=== PATIENT | male | born 1975 | race Caucasian/White ===

== ENCOUNTER 2024-11-29 16:06 | Emergency (ER) | payer SELFPAY ==
[2024-11-29 16:12] VITALS: BP 170/102; PULSE 120; RESP 18; TEMP 37.2; O2SAT 100
--- NOTE | 2024-11-29 17:44 | ED.GENADULT ---
HPI - General Adult General Chief complaint: Unspecified Stated complaint: feeling overwhelmed Time Seen by Provider: 11/29/24 17:10 Source: patient Mode of arrival: EMS Limitations: no limitations History of Present Illness HPI narrative: This is a 49-year-old male that presents to the emergency department for feeling overwhelmed. Reports him and his had an argument. He came to the ER as he wanted somebody to talk to. Had difficulty sleeping last night. Denies any thoughts of harming himself or anyone else. His is concerned as he has seemed paranoid recently Related Data Allergies Allergy/AdvReac Type Severity Reaction Status Date / Time No Known Allergies Allergy Verified 11/29/24 17:47 Review of Systems Review of Systems: All systems reviewed & are unremarkable except as noted in HPI and below PMFSH Social History Social History Substance use type: marijuana Exam Narrative: GENERAL: Disheveled, well-nourished, and in no acute distress. HEAD: Normocephalic, atraumatic. EYES: EOMI. CHEST: No respiratory distress. HEART: Regular rate EXTREMITIES: Normal range of motion. No edema. SKIN: Warm, dry, no rash. NEURO: No focal deficits. Alert and oriented x3. PSYCH: Normal mood and affect Course Course Emergency Course: Patient evaluated by crisis, given resources. Agrees with plan of care Vital Signs Vital signs: Vital Signs Temperature 99 F 11/29/24 16:12 Pulse Rate 120 H 11/29/24 16:12 Respiratory Rate 18 11/29/24 16:12 Blood Pressure 170/102 H 11/29/24 16:12 Pulse Oximetry 100 11/29/24 16:12 Oxygen Delivery Room Air 11/29/24 16:12 Temperature 99 F 11/29/24 16:12 Pulse Rate 81 11/29/24 20:31 Respiratory Rate 20 11/29/24 20:31 Blood Pressure 155/81 H 11/29/24 20:31 Pulse Oximetry 100 11/29/24 20:31 Oxygen Delivery Room Air 11/29/24 16:12 Medical Decision Making MDM Narrative Medical decision making narrative: Patient presents to the emergency department for feeling overwhelmed. Reports he wanted somebody to talk to. Him and his had gotten in an argument today. Had difficulty sleeping last night. Tachycardic and hypertensive upon arrival, this down trended with IV fluid hydration. Patient is afebrile and nontoxic appearing. CBC with leukocytosis to 16.3. He does not have any localizing infectious symptoms. Metabolic panel without concerning findings. Urine with some evidence of dehydration, patient hydrated with a L of IV fluids. Drug screen positive for amphetamines, cannabinoids. Alcohol level is negative. Patient evaluated by crisis, given resources. Agrees with plan of care Vital Signs Vital Signs: Vital Signs Temperature 99 F 11/29/24 16:12 Pulse Rate 120 H 11/29/24 16:12 Respiratory Rate 18 11/29/24 16:12 Blood Pressure 170/102 H 11/29/24 16:12 Pulse Oximetry 100 11/29/24 16:12 Oxygen Delivery Room Air 11/29/24 16:12 Temperature 99 F 11/29/24 16:12 Pulse Rate 81 11/29/24 20:31 Respiratory Rate 20 11/29/24 20:31 Blood Pressure 155/81 H 11/29/24 20:31 Pulse Oximetry 100 11/29/24 20:31 Oxygen Delivery Room Air 11/29/24 16:12 Lab Data Lab results reviewed: Yes I reviewed the patient's lab results. 11/29/24 17:46 11/29/24 17:46 Labs: Lab Results 11/29/24 Range/Units 17:46 WBC 16.3 H (4.5-10.0) K/mm3 RBC 5.03 (4.6-6.20) M/mm3 Hgb 14.4 (14.0-18.0) g/dL Hct 43.5 (42.0-52.0) % MCV 86.5 (80-100) fl MCH 28.6 (26-34) pg MCHC 33.1 (32-36) g/dl RDW 13.0 (11.5-14.5) % Plt Count 281 (150-375) k/mm3 MPV 10.7 H (7.4-10.4) fl Immature Gran % (Auto) 0.4 (0-0.5) % Neut % (Auto) 75.2 H (45.5-73.1) % Lymph % (Auto) 17.5 L (18.3-44.2) % [place] % (Auto) 6.1 (2.6-8.5) % Eos % (Auto) 0.2 (0-4.4) % Baso % (Auto) 0.6 (0.2-1.2) % Lymph # (Auto) 2.84 (0.9-3.2) K/mm3 [place] # (Auto) 1.0 H (0.1-0.6) K/mm3 Eos # (Auto) 0.0 (0-0.3) K/mm3 Baso # (Auto) 0.1 (0.0-0.1) K/mm3 Abs Immat Gran (auto) 0.06 H (0.00-0.031) K/mm3 Absolute Neuts (auto) 12.2 H (1.3-6.7) K/mm3 Absolute Nucleated RBC 0.000 (0.0-0.012) K/mm3 Nucleated RBC % 0.0 (0.0-0.2) % Sodium 139 (137-145) mmol/L Potassium 3.9 (3.4-5.0) mmol/L Chloride 105 (98-107) mmol/L Carbon Dioxide 22 (22-30) mmol/L Anion Gap 12 (4-12) mmol/L BUN 11 (9-20) mg/dL Creatinine 1.06 (0.7-1.3) mg/dL Estim Creat Clear Calc 83 ml/min Estimated GFR > 60 (59 - ) Glucose 110 (65-110) mg/dL Calcium 9.5 (8.4-10.2) mg/dL Total Bilirubin 1.2 (0.2-1.3) mg/dL AST 27 (17-59) U/L ALT 16 (6-50) U/L Alkaline Phosphatase 87 (38-126) U/L Total Creatine Kinase 94 (55-170) U/L Total Protein 9.1 H (6.3-8.2) g/dL Albumin 5.1 (3.5-5.1) g/dL TSH (Reflex) 1.670 (0.465-4.68) uIU/mL Urine Color Dark yellow (Yellow) Urine Appearance Clear (Clear) Urine pH 7.5 (5.0-9.0) Ur Specific [place] 1.023 (1.001-1.035) Urine Protein 1+ H (Negative) mg/dL Urine Glucose (UA) Negative (Negative) mg/dL Urine Ketones 2+ H (Negative) mg/dL Ur Blood (Man) Negative (Negative) Urine Nitrate Negative (Negative) Urine Bilirubin Negative (Negative) Urine Urobilinogen 1.0 (<2.0) mg/dL Add Ur Microanalysis Reviewed Leukocyte Esterase Rfl Negative (Negative) CÉSAR/UL Urine RBC 6-10 H (0-2) /hpf Urine WBC 0-5 (0-3) /hpf Ur Squamous Epith Cells None seen (Few) /hpf Calcium Oxalate Crystal Present (None) /hpf Urine Bacteria None seen /hpf Urine Casts 3-5 Hyaline Casts Present (None) /lpf Urine Mucus Present /lpf Urine Opiates Screen Negative (Negative) Urine Methadone Screen Negative (Negative) Ur Barbiturates Screen Negative (Negative) Ur Phencyclidine Scrn Negative (Negative) Ur Amphetamine Screen Positive A (Negative) U Benzodiazepines Scrn Negative (Negative) Urine Cocaine Screen Negative (Negative) U Cannabinoids Screen Positive A (Negative) Ethyl Alcohol < 10 (<10) mg/dL Influenza A (RT-PCR) Negative (Negative) Influenza B (RT-PCR) Negative (Negative) SARS-CoV-2 RNA (RT-PCR) Negative (Negative) Critical Care Time Critical Care Time Critical Care Time: No Discharge Plan Discharge Clinical Impression: Stress reaction Patient Disposition: Home Condition: Improved Instructions: Stress (ED), Help Prevent Suicide (ED) Additional Instructions: Return to the emergency department if you experience fever, chest pain, shortness of breath, abdominal pain with nausea and vomiting, you have thoughts of harming yourself or anyone else, or any other symptoms that are concerning to you. Follow up with resources provided by crisis Patient Language: Lithuanian Follow-up/Referrals: PHYSICIAN,MOISTURE MACHINE TENDER [Primary Care Provider, Internal Medicine] Chaz Vega MD [Physician, Family Practice]
[2024-11-29 17:55] LABS: Hematocrit 43.5 % (42.0-52.0); Hemoglobin 14.4 g/dL (14.0-18.0); Immature Granulocyte Percent A 0.4 % (0-0.5); Lymphocytes Absolute Auto 2.84 K/mm3 (0.9-3.2); Mean Corpuscular HGB Conc 33.1 g/dl (32-36); Mean Corpuscular Hemoglobin 28.6 pg (26-34); Mean Corpuscular Volume 86.5 fl (80-100); Nucleated Red Blood Cells Absolute Auto 0.000 K/mm3 (0.0-0.012); Nucleated Red Blood Cells Perc 0.0 % (0.0-0.2); Platelet Count Result 281 k/mm3 (150-375); Red Blood Count 5.03 M/mm3 (4.6-6.20); White Blood Count 16.3 K/mm3 (4.5-10.0)
[2024-11-29] MEDS: ONDANSETRON HCL ODT 4 MG TABLET PO (17:55)
[2024-11-29 18:09] LABS: Alanine Aminotransferase 16 U/L (6-50); Albumin Level 5.1 g/dL (3.5-5.1); Alkaline Phosphatase 87 U/L (38-126); Anion Gap 12 mmol/L (4-12); Aspartate Amino Transferase 27 U/L (17-59); Bilirubin,Total 1.2 mg/dL (0.2-1.3); Blood Urea Nitrogen 11 mg/dL (9-20); Calcium 9.5 mg/dL (8.4-10.2); Carbon Dioxide 22 mmol/L (22-30); Chloride 105 mmol/L (98-107); Estimated CRCL calculation 83 ml/min; Estimated Glomerular Filt Rate > 60; Glucose 110 mg/dL (65-110); Potassium 3.9 mmol/L (3.4-5.0); Sodium 139 mmol/L (137-145); Total Protein 9.1 g/dL (6.3-8.2)
[2024-11-29 18:21] LABS: Cannabinoid Screen Urine Positive (Negative)
[2024-11-29 18:52] LABS: Influenza A QL RT-PCR Negative (Negative); Influenza B QL RT-PCR Negative (Negative); SARS-CoV-2 RNA PCR Negative (Negative)
[2024-11-29 19:01] LABS: Thyroid Stimulating Hormone Reflex 1.670 uIU/mL (0.465-4.68)
[2024-11-29 19:10] LABS: Add Urine Microscopic? YES; Appearance Urine Clear (Clear); Glucose Urine UA Negative (Negative); Leukocyte Esterase Ur Negative LEU/UL (Negative); Need Manual Microscopic Reviewed; Nitrate Urine Negative (Negative); Specific Grav Ur 1.023 (1.001-1.035)
[2024-11-29 19:17] LABS: Creatine Kinase 94 U/L (55-170)
[2024-11-29] MEDS: SODIUM CHLORIDE 0.9% IV 1,000 ML 999 ML IV CONT (19:29)
[2024-11-29 20:31] VITALS: BP 155/81; PULSE 81; RESP 20; O2SAT 100
--- NOTE | 2024-11-29 20:51 | PC.NURSE ---
This RN asked pt about hallucinations. Pt reports he hears ringing in his ears. Negative energy around him when he is sleeping. Pt states he feels like he is going in and out of time. Lastly, pt states about a month ago he was in the or[place]iz and felt like he kept seeing eyes. Pt states he does not have any SI or HI. EP notified.
--- NOTE | 2024-11-29 22:07 | PC.NURSE ---
This RN spoke to pt per pt request.CRISIS will call when available for better instructions per request.
== END 2024-11-29 22:57 | disposition home or self-care (01) ==
PROVIDERS: Emergency Provider Physician Assistant
DX: F43.9 Reaction to severe stress, unspecified (principal); I10 Essential (primary) hypertension; R00.0 Tachycardia, unspecified; D72.829 Elevated white blood cell count, unspecified; Z20.822 Contact with and (suspected) exposure to COVID-19
CPT/HCPCS: 36415; 80053; 80307; 81001; 82077; 82550; 84443; 85025; 87636; 96360; 99284; A9270; J7030

== ENCOUNTER 2024-12-11 21:22 | Observation (INO) | payer SELFPAY ==
--- NOTE | ~2024-12-11 | CT_ITS ---
EXAMINATION: CT BRAIN W/O DATE: 12/11/2024 21:50 INDICATION: Syncope TECHNIQUE: Computed tomography (CT) of the head was performed without intravenous contrast. The dose-length product was 605.33 mGy-cm. COMPARISON: No prior studies for comparison. FINDINGS: Normal brain parenchymal volume for age. Normal corona-white differentiation. No acute intracranial hemorrhage, infarction, mass or mass effect. No ventriculomegaly or midline shift. Midline sagittal images demonstrate a normal corpus callosum, craniovertebral junction and sella turcica. Basilar cisterns are patent. Paranasal sinuses and mastoids are pneumatized. No depressed skull fractures. IMPRESSION: 1. No acute intracranial abnormality. Reviewed, dictated and finalized at location O.
--- NOTE | ~2024-12-11 | XR_ITS ---
EXAMINATION: XR chest 1V portable 12/11/2024 21:54 INDICATION: Syncope PROCEDURE: AP portable chest COMPARISON: No prior studies for comparison. FINDINGS: The lungs are clear. The cardiomediastinal silhouette is within normal limits. There are no pleural effusions. There is no pneumothorax suspected. IMPRESSION: 1: NO ACUTE CARDIOPULMONARY DISEASE. Reviewed, dictated and finalized at location O.
[2024-12-11 21:24] VITALS: BP 109/94; PULSE 97; RESP 18; TEMP 36.4; O2SAT 100
--- NOTE | 2024-12-11 21:28 | ECG_ITS ---
Test Date: 2024-12-11 21:31:54 Measurements Intervals [place] Rate: 86 P: 61 NM: 142 QRS: 50 QRSD: 94 T: 20 QT: 374 QTc: 449 Interpretive Statements SINUS RHYTHM POSSIBLE LEFT ATRIAL ENLARGEMENT [-0.1mV P-WAVE IN V1/V2] NONSPECIFIC T-WAVE ABNORMALITY No previous ECG available for comparison Electronically Signed On 12-12-2024 06:38:25 CDT by Warren Howard M.D.
--- NOTE | 2024-12-11 21:43 | ED_ITS ---
HPI - Syncope General Chief Complaint: Seizure Stated Complaint: NEW ONSET SZ ACTIVITY Time Seen by Provider: 12/11/24 21:31 History of Present Illness HPI narrative: 49-year-old male with history of psychiatric illness presenting to the emergency department after seizure versus syncopal event that was witnessed by family member was present at bedside. Patient recently was admitted to a [facility] where he was titrated on any medications for his psychosis. Discharged home on Zyprexa and trazodone which he took his 1st dose of today but has been taking them during the hospital stay but was not able to get them filled until today. He presents today as his noticed that he had a syncopal event where he was walking to the bathroom and then all the sudden fell face 1st and landed on the ground with some seizure-like activity where he was shaking his extremities and lost consciousness very briefly. This lasted about 30 seconds and he regained consciousness was acting appropriately. He was diaphoretic and sweating at this time though. EMS was called as this almost happened again. EMS noted that in the ambulance rig patient became bradycardic and hypotensive with pulses in the 40s and blood pressure in the 60s systolic and he was very diaphoretic. They administered 1 mg of atropine with improvement in vital signs. Patient not have any further seizure or shaking activity and brought to the hospital and placed into the emergency department room 5 for evaluation. Patient denies any chest pain, shortness a breath, nausea, vomiting or headache at this time. He states he just feels very tired. He is acting appropriately moving all extremities. Does not appear postictal but does complain of feeling tired. No evidence of traumatic injury. EKG reviewed from EMS shows sinus bradycardia. EKG obtained here shows normal QTC interval, no ST segment changes or ectopy. Placed on cardiac catheterization technologist and workup underway. Related Data Home Medications ?Medication ?Instructions ?Recorded ?Confirmed ?Last Taken ?Type olanzapine 20 mg tablet 20 mg PO HS 12/11/24 5 12/11/24 History trazodone 50 mg tablet 50 mg PO HS PRN insomnia 12/11/24 12/11/24 History Allergies Allergy/AdvReac Type Severity Reaction Status Date / Time No Known Allergies Allergy Verified 12/11/24 21:33 Review of Systems 2 Review of Systems: As reviewed above in HPI PMFSH Past Medical History Medical History (Updated 12/12/24 @ 06:29 by Yong Romero MD) Bipolar disorder Surgical History Surgical History (Updated 12/12/24 @ 04:25 by Sara Durand DO) No history of previous surgery Family History Family History Mother Hypertension Father Lung cancer Social History Social History (Updated 12/12/24 @ 04:27 by Sara Durand DO) Social History: Patient lives with his of 13 years. 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 He smokes 7 cigarettes a day on and off for about 25 years.. He uses marijuana gummies daily. He denies any alcohol use. Code status: Full code Surrogate decision maker: Smoking packs per day: 0.25 Smoking cigarettes per day: 5.0 Years smoked: 25 Smoking pack-years: 6.25 Smoking status: Current every day smoker Tobacco type: cigarettes Alcohol intake: never Substance use: current Substance use type: marijuana Other substance usage details: daily Lack of Transportation: No Lack of Food: Never True Current Housing: I Have Housing Concerned About Future Housing: No Difficulty Paying Gas/Electric Bills: No Difficulty Paying for Meds: No Currently Unemployed: No Education: High School Diploma/GED Difficulty w/ Childcare or Family Care: No Spiritual care concerns: No Exam 2 Narrative: GENERAL: [Well-appearing, well-nourished, and in no acute distress.] HEAD: Slightly diaphoretic on the forehead but otherwise normocephalic and atraumatic EYES: [PERRLA and EOMI.] ENT: Nares clear, no rhinorrhea or epistaxis. Mucous membranes moist. NECK: Supple. CHEST: [Clear to auscultation. No respiratory distress.] HEART: [Regular rate and rhythm]. No murmur heard. [Normal peripheral pulses.] ABDOMEN: [Soft, nondistended], [nontender], [No rigidity or guarding] EXTREMITIES: Normal range of motion. [No edema.] SKIN: Warm, dry, no rash. NEURO: [No focal deficits]. Alert and oriented [x3.] PSYCH: [Normal mood and affect.] Course Vital Signs Vital signs: Vital Signs Temperature 36.4 C 12/11/24 21:24 Pulse Rate 97 09/24/25 21:24 Respiratory Rate 18 12/11/24 21:24 Blood Pressure 109/94 H 12/11/24 21:24 Pulse Oximetry 100 12/11/24 21:24 Oxygen Delivery Room Air 12/11/24 21:24 Temperature 36.6 C 12/12/24 06:00 Pulse Rate 50 L 12/12/24 06:00 Respiratory Rate 16 12/12/24 06:00 Blood Pressure 104/57 L 12/12/24 06:00 Pulse Oximetry 100 12/12/24 06:00 Oxygen Delivery Room Air 12/12/24 03:28 MDM - Syncope MDM Narrative Medical decision making narrative: 49-year-old male with history of psychiatric illness presenting to the emergency department after seizure versus syncopal event that was witnessed by family member was present at bedside. Patient recently was admitted to a [facility] hospital where he was titrated on any medications for his psychosis. Discharged home on Zyprexa and trazodone which he took his 1st dose of today but has been taking them during the hospital stay but was not able to get them filled until today. He presents today as his noticed that he had a syncopal event where he was walking to the bathroom and then all the sudden fell face 1st and landed on the ground with some seizure-like activity where he was shaking his extremities and lost consciousness very briefly. This lasted about 30 seconds and he regained consciousness was acting appropriately. He was diaphoretic and sweating at this time though. EMS was called as this almost happened again. EMS noted that in the ambulance rig patient became bradycardic and hypotensive with pulses in the 40s and blood pressure in the 60s systolic and he was very diaphoretic. They administered 1 mg of atropine with improvement in vital signs. Patient not have any further seizure or shaking activity and brought to the hospital and placed into the emergency department room 5 for evaluation. Patient denies any chest pain, shortness a breath, nausea, vomiting or headache at this time. He states he just feels very tired. He is acting appropriately moving all extremities. Does not appear postictal but does complain of feeling tired. No evidence of traumatic injury. EKG reviewed from EMS shows sinus bradycardia. EKG obtained here shows normal QTC interval, no ST segment changes or ectopy. Placed on cardiac catheterization technologist and workup underway. Patient's family at bedside is providing collateral formation as well. He has normal vital signs on the monitor without any tachycardia, fever, hypoxemia or blood pressure concerns at this time. He is slightly diaphoretic. Historical elements of physical exam is concerning for potential seizure activity although he did not have any postictal phase and was short-lived return of mentation so potential for other causes such as electrolyte imbalances, dysrhythmia, cardiac related syncope and less likely thromboembolic related syncope from a PE. He did have recent hospitalization for psychiatric illness and started on new psychotropic medications which can affect cardiac activity especially the trazodone that he was prescribed being an alpha-dana and serotonin modulators and the Zyprexa potentially be causing interval prolongation. EKG is reassuring initially without any evidence of this. Laboratory studies obtained, cardiac workup underway. CT of the head ordered. Dimer ordered. Urine drug screen. Patient will be re-evaluated frequently and on telemetry at this time. Urinalysis unremarkable for infection Patient's workup was largely unremarkable. No acute findings on laboratory studies or CT scan. No significant leukocytosis but he does have some anemia at 11 but stable on repeat labs. Normal platelet count. Electrolyte panel unremarkable. Normal kidney function. Normal glucose and LFTs. Negative lactic acid. Negative dimer. Negative troponin x2. Urinalysis without infection. EKG shows normal QTC interval, normal rate, no ectopy. No ST segment changes. Given patient's unclear cause of syncope with concerning historical elements and new medications that do have some alpha blockade including trazodone and Zyprexa he will be admitted for observation and workup. Spoke to the hospitalist Dr. Durand who accepted the patient to a telemetry monitored bed for observation. Family and patient comfortable with plan and stay for admission. Medical Records Attestation: I reviewed the patient's medical records. Lab Data Attestation: I reviewed the patient's lab results. 12/12/24 05:25 12/12/24 05:25 Labs: Lab Results 12/11/24 12/11/24 12/11/24 Range/Units 21:27 22:12 22:18 WBC 10.6 H (4.5-10.0) K/mm3 RBC 3.76 L (4.6-6.20) M/mm3 Hgb 11.0 L D (14.0-18.0) g/dL Hct 33.4 L (42.0-52.0) % MCV 88.8 (80-100) fl MCH 29.3 (26-34) pg MCHC 32.9 (32-36) g/dl RDW 12.9 (11.5-14.5) % Plt Count 171 (150-375) k/mm3 MPV 11.4 H (7.4-10.4) fl Immature Gran % (Auto) 0.4 (0-0.5) % Neut % (Auto) 55.8 (45.5-73.1) % Lymph % (Auto) 33.4 (18.3-44.2) % [place] % (Auto) 8.3 (2.6-8.5) % Eos % (Auto) 1.5 (0-4.4) % Baso % (Auto) 0.6 (0.2-1.2) % Lymph # (Auto) 3.54 H (0.9-3.2) K/mm3 [place] # (Auto) 0.9 H (0.1-0.6) K/mm3 Eos # (Auto) 0.2 (0-0.3) K/mm3 Baso # (Auto) 0.1 (0.0-0.1) K/mm3 Abs Immat Gran (auto) 0.04 H (0.00-0.031) K/mm3 Absolute Neuts (auto) 5.9 (1.3-6.7) K/mm3 Absolute Nucleated RBC 0.000 (0.0-0.012) K/mm3 Nucleated RBC % 0.0 (0.0-0.2) % PT 13.6 (11.1-14.7) Seconds INR 1.0 APTT 25.6 (22.3-36.8) Seconds D-Dimer 0.46 (<0.48) ug/mL Sodium 138 (137-145) mmol/L Potassium 3.7 (3.4-5.0) mmol/L Chloride 106 (98-107) mmol/L Carbon Dioxide 29 (22-30) mmol/L Anion Gap 3 L (4-12) mmol/L BUN 13 (9-20) mg/dL Creatinine 0.92 (0.7-1.3) mg/dL Estim Creat Clear Calc 108 ml/min Estimated GFR > 60 (59 - ) Glucose 123 H (65-110) mg/dL POC Capillary Glucose 130 H (65-105) mg/dl Lactic Acid 1.1 (0.7-2.0) mmol/L Calcium 8.9 (8.4-10.2) mg/dL Total Bilirubin < 0.1 L (0.2-1.3) mg/dL AST 21 (17-59) U/L ALT 15 (6-50) U/L Alkaline Phosphatase 63 (38-126) U/L Troponin I < 0.012 (0.000-0.034) ng/mL Total Protein 5.9 L (6.3-8.2) g/dL Albumin 3.4 L (3.5-5.1) g/dL Lipase 104 (23-300) U/L Urine Color (Yellow) Urine Appearance (Clear) Urine pH (5.0-9.0) Ur Specific [place] (1.001-1.035) Urine Protein (Negative) mg/dL Urine Glucose (UA) (Negative) mg/dL Urine Ketones (Negative) mg/dL Ur Blood (Man) (Negative) Urine Nitrate (Negative) Urine Bilirubin (Negative) Urine Urobilinogen (<2.0) mg/dL Leukocyte Esterase Rfl (Negative) CÉSAR/UL Urine RBC (0-2) /hpf Urine WBC (0-3) /hpf Ur Squamous Epith Cells (Few) /hpf Urine Bacteria /hpf Urine Casts Urine Opiates Screen (Negative) Urine Methadone Screen (Negative) Ur Barbiturates Screen (Negative) Ur Phencyclidine Scrn (Negative) Ur Amphetamine Screen (Negative) U Benzodiazepines Scrn (Negative) Urine Cocaine Screen (Negative) U Cannabinoids Screen (Negative) Influenza A (RT-PCR) Negative (Negative) Influenza B (RT-PCR) Negative (Negative) RSV (RT-PCR) Negative (Negative) SARS-CoV-2 RNA (RT-PCR) Negative (Negative) 12/11/24 12/12/24 Range/Units 22:50 00:32 WBC (4.5-10.0) K/mm3 RBC (4.6-6.20) M/mm3 Hgb (14.0-18.0) g/dL Hct (42.0-52.0) % MCV (80-100) fl MCH (26-34) pg MCHC (32-36) g/dl RDW (11.5-14.5) % Plt Count (150-375) k/mm3 MPV (7.4-10.4) fl Immature Gran % (Auto) (0-0.5) % Neut % (Auto) (45.5-73.1) % Lymph % (Auto) (18.3-44.2) % [place] % (Auto) (2.6-8.5) % Eos % (Auto) (0-4.4) % Baso % (Auto) (0.2-1.2) % Lymph # (Auto) (0.9-3.2) K/mm3 [place] # (Auto) (0.1-0.6) K/mm3 Eos # (Auto) (0-0.3) K/mm3 Baso # (Auto) (0.0-0.1) K/mm3 Abs Immat Gran (auto) (0.00-0.031) K/mm3 Absolute Neuts (auto) (1.3-6.7) K/mm3 Absolute Nucleated RBC (0.0-0.012) K/mm3 Nucleated RBC % (0.0-0.2) % PT (11.1-14.7) Seconds INR APTT (22.3-36.8) Seconds D-Dimer (<0.48) ug/mL Sodium (137-145) mmol/L Potassium (3.4-5.0) mmol/L Chloride (98-107) mmol/L Carbon Dioxide (22-30) mmol/L Anion Gap (4-12) mmol/L BUN (9-20) mg/dL Creatinine (0.7-1.3) mg/dL Estim Creat Clear Calc ml/min Estimated GFR (59 - ) Glucose (65-110) mg/dL POC Capillary Glucose (65-105) mg/dl Lactic Acid (0.7-2.0) mmol/L Calcium (8.4-10.2) mg/dL Total Bilirubin (0.2-1.3) mg/dL AST (17-59) U/L ALT (6-50) U/L Alkaline Phosphatase (38-126) U/L Troponin I < 0.012 (0.000-0.034) ng/mL Total Protein (6.3-8.2) g/dL Albumin (3.5-5.1) g/dL Lipase (23-300) U/L Urine Color Yellow (Yellow) Urine Appearance Turbid H (Clear) Urine pH 7.0 (5.0-9.0) Ur Specific [place] 1.018 (1.001-1.035) Urine Protein 1+ H (Negative) mg/dL Urine Glucose (UA) Negative (Negative) mg/dL Urine Ketones Trace H (Negative) mg/dL Ur Blood (Man) Negative (Negative) Urine Nitrate Negative (Negative) Urine Bilirubin Negative (Negative) Urine Urobilinogen 1.0 (<2.0) mg/dL Leukocyte Esterase Rfl Negative (Negative) CÉSAR/UL Urine RBC 0-2 (0-2) /hpf Urine WBC 0-5 (0-3) /hpf Ur Squamous Epith Cells None seen (Few) /hpf Urine Bacteria None seen /hpf Urine Casts 3-5 Urine Opiates Screen Negative (Negative) Urine Methadone Screen Negative (Negative) Ur Barbiturates Screen Negative (Negative) Ur Phencyclidine Scrn Negative (Negative) Ur Amphetamine Screen Negative (Negative) U Benzodiazepines Scrn Negative (Negative) Urine Cocaine Screen Negative (Negative) U Cannabinoids Screen Positive A (Negative) Influenza A (RT-PCR) (Negative) Influenza B (RT-PCR) (Negative) RSV (RT-PCR) (Negative) SARS-CoV-2 RNA (RT-PCR) (Negative) Imaging Data Attestation: I personally reviewed and interpreted this imaging study as follows: My impression: Impressions Head CT 12/11/24 21:51 IMPRESSION: 1. No acute intracranial abnormality. Chest X-Ray 12/11/24 22:00 IMPRESSION: 1: NO ACUTE CARDIOPULMONARY DISEASE. Discharge Plan Discharge Clinical Impression: Syncope and collapse Patient Disposition: Still a Patient Condition: Stable
[2024-12-11] MEDS: SODIUM CHLORIDE 0.9% IV 1,000 ML 999 ML IV CONT (22:08)
[2024-12-11 22:25] LABS: Hematocrit 33.4 % (42.0-52.0); Hemoglobin 11.0 g/dL (14.0-18.0); Immature Granulocyte Percent A 0.4 % (0-0.5); Lymphocytes Absolute Auto 3.54 K/mm3 (0.9-3.2); Mean Corpuscular HGB Conc 32.9 g/dl (32-36); Mean Corpuscular Hemoglobin 29.3 pg (26-34); Mean Corpuscular Volume 88.8 fl (80-100); Nucleated Red Blood Cells Absolute Auto 0.000 K/mm3 (0.0-0.012); Nucleated Red Blood Cells Perc 0.0 % (0.0-0.2); Platelet Count Result 171 k/mm3 (150-375); Red Blood Count 3.76 M/mm3 (4.6-6.20); White Blood Count 10.6 K/mm3 (4.5-10.0)
[2024-12-11 22:36] LABS: Alanine Aminotransferase 15 U/L (6-50); Albumin Level 3.4 g/dL (3.5-5.1); Alkaline Phosphatase 63 U/L (38-126); Anion Gap 3 mmol/L (4-12); Aspartate Amino Transferase 21 U/L (17-59); Bilirubin,Total < 0.1 mg/dL (0.2-1.3); Blood Urea Nitrogen 13 mg/dL (9-20); Calcium 8.9 mg/dL (8.4-10.2); Carbon Dioxide 29 mmol/L (22-30); Chloride 106 mmol/L (98-107); Estimated CRCL calculation 108 ml/min; Estimated Glomerular Filt Rate > 60; Glucose 123 mg/dL (65-110); Lipase 104 U/L (23-300); Potassium 3.7 mmol/L (3.4-5.0); Sodium 138 mmol/L (137-145); Total Protein 5.9 g/dL (6.3-8.2)
[2024-12-11 22:48] LABS: Troponin I < 0.012 ng/mL (0.000-0.034)
[2024-12-11 22:49] LABS: INR 1.0; Prothrombin Time 13.6 Seconds (11.1-14.7)
[2024-12-11 22:50] LABS: Partial Thromboplastin Time 25.6 Seconds (22.3-36.8)
[2024-12-11 22:53] LABS: Influenza A QL RT-PCR Negative (Negative); Influenza B QL RT-PCR Negative (Negative); RSV RNA, RT-PCR Negative (Negative); SARS-CoV-2 RNA PCR Negative (Negative)
[2024-12-11 23:01] LABS: Add Urine Microscopic? YES; Appearance Urine Turbid (Clear); Glucose Urine UA Negative (Negative); Leukocyte Esterase Ur Negative LEU/UL (Negative); Nitrate Urine Negative (Negative); Specific Grav Ur 1.018 (1.001-1.035)
[2024-12-11 23:15] LABS: Cannabinoid Screen Urine Positive (Negative)
[2024-12-12] VITALS (15 sets, daily range): BP systolic 104–139; BP diastolic 57–91; PULSE 50–90; RESP 16–20; TEMP 36.4–36.7; O2SAT 98–100; BMI 30.4
--- NOTE | 2024-12-12 | ECHO_ITS ---
Patient Info Name: Dennis Escalante Age: 49 years : 1975 Gender: Male Ht: 71 in Wt: 218 lbs BSA: 2.25 m2 HR: 66 bpm BP: 104 / 57 mmHg Technical Quality: Good Exam Date: 12/12/2024 3:18 PM Patient Status: O Admit Date: 12/12/2024 Exam Type: CA echo doppler color flow Complete two-dimensional, color flow and Doppler transthoracic echocardiogram is performed. Staff Referring Physician: Yong Romero Belt Maker Helper: Pauline Stein Attending Provider: Sara Durand DO Summary 1. Complete two-dimensional, color flow and Doppler transthoracic echocardiogram is performed. 2. Left ventricular systolic function is normal, estimated at 60-65. 3. The left ventricular diastolic function is normal. 4. There is trace tricuspid valve regurgitation. 5. Moderate pulmonary hypertension, estimated pulmonary arterial systolic pressure is 55 mmHg. 6. The aortic root size at the sinus of Valsalva is mildly dilated. Left Ventricle Left ventricular chamber dimension is normal. Left ventricular systolic function is normal, estimated at 60-65. There is no increased left ventricular wall thickness. Left ventricular septal wall motion is normal. The left ventricular diastolic function is normal. Right Ventricle Right ventricular chamber dimension is normal. Right ventricular systolic function is normal. Left Atria Left atrial chamber dimension is normal. Right Atria Right atrial chamber dimension is normal. Aortic Valve The aortic valve is trileaflet. There is no aortic valve sclerosis. There is no aortic valve stenosis. There is no aortic valve regurgitation. Pulmonic Valve The pulmonic valve is normal. There is no pulmonic valve stenosis. There is no pulmonic regurgitation. Mitral Valve The mitral valve has normal leaflets. There is no mitral valve stenosis. There is no mitral valve regurgitation. Tricuspid Valve The tricuspid valve leaflets are normal. There is no significant tricuspid valve stenosis. There is trace tricuspid valve regurgitation. Moderate pulmonary hypertension, estimated pulmonary arterial systolic pressure is 55 mmHg. Pericardium/Pleural The pericardium appears normal. There is no pericardial effusion. Inferior Vena Cava Normal inferior vena cava with >50% collapse upon inspiration consistent with normal right atrial pressure, 5 mmHg. Aorta The aortic root size at the sinus of Valsalva is mildly dilated. The prox ascending aorta size is normal. Left Ventricular Outflow Tract Name Value Normal LVOT 2D LVOT Diameter 2.0 cm LVOT Doppler LVOT Peak Velocity 142 cm/s LVOT Peak Gradient 8 mmHg LVOT Mean Gradient 4 mmHg LVOT VTI 27 cm LVOT Stroke Volume 84 ml LVOT CO 4.9 l/min LVOT CI 2.2 l/min/m2 Pulmonic Valve Name Value Normal RVOT Doppler RVOT Peak Velocity 74 cm/s RVOT Peak Gradient 2 mmHg PV Doppler PV Peak Velocity 115 cm/s PV Peak Gradient 5 mmHg Mitral Valve Name Value Normal MV Diastolic Function MV E Peak Velocity 102 cm/s MV A Peak Velocity 55 cm/s MV E/A 1.9 MV Decel Time (PW) 243 ms MV Annular TDI MV E/e' (Septal) 9.0 MV E/e' (Lateral) 5.2 MV E/e' (Average) 7.1 Tricuspid Valve Name Value Normal TV Regurgitation Doppler TR Peak Velocity 354 cm/s TR Peak Gradient 40 mmHg Estimated PAP/RSVP RA Pressure 5 mmHg <=5 PA Systolic Pressure 55 mmHg <36 RV Systolic Pressure 55 mmHg <36 Aortic Valve Name Value Normal AV Doppler AV Peak Velocity 167 cm/s AV Peak Gradient 11 mmHg AV Area (Cont Eq Wilber) 2.7 cm2 AV DI (Wilber) 0.85 AV Regurgitation 2D LVOT Area 3.1 cm2 Ventricles Name Value Normal LV Dimensions 2D/MM IVS Diastolic Thickness (2D) 0.9 cm 0.6-1.0 LVID Diastole (2D) 4.8 cm 4.2-5.8 LVIW Diastolic Thickness (2D) 1.0 cm 0.6-1.0 LVID Systole (2D) 3.2 cm 2.5-4.0 LVOT Diameter 2.0 cm LV Mass (2D Cubed) 162.87 g 88.00-224.00 LV Mass Index (2D Cubed) 72 g/m2 49-115 Relative Wall Thickness (2D) 0.43 <=0.42 LV Fractional Shortening/Ejection Fraction 2D/MM LV Fractional Shortening (2D) 32 % 25-43 LV EF (2D Teichholz) 60 % LV Diastolic Volume (4C MOD) 106 ml LV EF (4C MOD) 63 % LV Diastolic Volume (2C MOD) 120 ml LV EF (2C MOD) 71 % LV Diastolic Volume (BP MOD) 114 ml 62-150 LV Diastolic Volume Index (BP MOD) 51 ml/m2 34-74 LV Systolic Volume (BP MOD) 38 ml 21-61 LV Systolic Volume Index (BP MOD) 17 ml/m2 11-31 LV EF (BP MOD) 66 % 52-72 LV Diastolic Length (4C) 8.6 cm LV Systolic Length (4C) 7.3 cm LV Stroke Volume (4C MOD) 67 ml Atria Name Value Normal LA Dimensions LA Volume (4C A-L) 63 ml LA Volume (BP A-L) 75 ml RA Dimensions RA Systolic Major [place] Length (4C) 5.9 cm 2.1-2.7 RA Area (4C) 20.5 cm2 <=18.0 Report Signatures
--- NOTE | 2024-12-12 00:38 | ECG_ITS ---
Test Date: 2024-12-12 00:24:49 Measurements Intervals [place] Rate: 64 P: 62 CO: 131 QRS: 61 QRSD: 92 T: 42 QT: 436 QTc: 452 Interpretive Statements SINUS RHYTHM WITH SINUS ARRHYTHMIA Electronically Signed On 12-12-2024 06:37:45 CDT by Warren Howard M.D.
[2024-12-12 01:09] LABS: Troponin I < 0.012 ng/mL (0.000-0.034)
--- NOTE | 2024-12-12 01:21 | PM.IMHP ---
H&P: HPI History of Present Illness Date/Time: 12/12/24 01:21 Chief Complaint: Seizure-like activity Narrative: 49-year-old male with a past medical history of psychiatric illness with psychosis to was recently started on Zyprexa and trazodone who presented to the ER via EMS due to loss of consciousness with seizure-like activity. The patient reports that he was discharged [place] on 12/09/2024 after a 7 day stay. The went to get his medications filled but they were not ready. Did not picker his medications until the . He took is Zyprexa in the afternoon when they picked up his meds and then took is trazodone at bedtime. He stated that he got up to go to the bathroom to have a bowel movement and about skilled nursing to the bathroom started to feel lightheaded and sweaty. He passed out and does not remember falling he does report some discomfort in his shoulders. His reported that the patient fell face 1st in landed on the ground. He had about 30 seconds of shaking of his extremities. He woke up after about 30 seconds and was back to his usual self without evidence of postictal state. He was diaphoretic and sweating. She called EMS when patient was on route to hospital the patient reported that he became nauseous and diaphoretic. He it was about that time the patient became bradycardic and hypotensive with systolics in the 60s and heart rates in the low 40s. He was given a dose of atropine with resolution of his hypotension and bradycardia. The patient stated that he was able to have a bowel movement prior to getting in the ambulance. He has not had any further nausea or symptoms of lightheadedness. Never had a history of a seizure. He denied any preceding chest pain or palpitations. His is stated to the ER providers that the patient tends to minimize his symptoms. The was concerned that the patient may have been taking her Adderall with the patient's urine drug screen was negative for amphetamines. He reports that he feels extremely tired which he blames on the medications. He does not know what is psychiatric diagnosis was. He does not know if he has a follow-up appointment. He reports feeling anxious. Review of Systems Review of Systems: 12 systems were reviewed with pertinent positives and negatives per HPI. Except as documented in the HPI, all other systems were reviewed and are negative. [facility] Past Medical History Medical History (Updated 12/12/24 @ 04:33 by Sara Durand DO) Bipolar disorder Surgical History Surgical History (Updated 12/12/24 @ 04:25 by Sara Durand DO) No history of previous surgery Family History Family History Mother Hypertension Father Lung cancer Social History Social History (Updated 12/12/24 @ 04:27 by Sara Durand DO) Social History: Patient lives with his of 13 years. 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 He smokes 7 cigarettes a day on and off for about 25 years.. He uses marijuana gummies daily. He denies any alcohol use. Code status: Full code Surrogate decision maker: Smoking packs per day: 0.25 Smoking cigarettes per day: 5.0 Years smoked: 25 Smoking pack-years: 6.25 Smoking status: Current every day smoker Tobacco type: cigarettes Alcohol intake: never Substance use: current Substance use type: marijuana Other substance usage details: daily Lack of Transportation: No Lack of Food: Never True Current Housing: I Have Housing Concerned About Future Housing: No Difficulty Paying Gas/Electric Bills: No Difficulty Paying for Meds: No Currently Unemployed: No Education: High School Diploma/GED Difficulty w/ Childcare or Family Care: No Spiritual care concerns: No Meds Home Medications and Allergies Home Medications ?Medication ?Instructions ?Recorded ?Confirmed ?Type olanzapine 20 mg tablet 20 mg PO HS 12/11/24 12/11/24 History trazodone 50 mg tablet 50 mg PO HS PRN insomnia 12/11/24 12/11/24 History Allergies Allergy/AdvReac Type Severity Reaction Status Date / Time No Known Allergies Allergy Verified 12/11/24 21:33 Vital Signs Vital Signs - 24 hr 12/11/24 21:24 12/12/24 01:02 Temperature 97.6 F 97.5 F L Pulse Rate 97 61 Respiratory Rate 18 18 Blood Pressure 109/94 H 132/71 Pulse Oximetry 100 99 Oxygen Delivery Room Air Exam Narrative: Weight 98.9 kg BMI 30.4 Const: Other: No acute distress, overweight, appears stated age, smells strongly of urine HENMT: Other: Head is normocephalic atraumatic, Mucous membranes are moist, no oral pharyngeal erythema, poor dentition Eyes: Other: Pupils are equal and reactive, no scleral icterus Neck: Other: No JVD, irregular right border thyroid gland Resp: Other: Clear to auscultation bilaterally, no increased work of breathing Cardio: Other: Regular rate, regular rhythm, 2+ bilateral radial pedal pulses GI: Other: nontender, nondistended, positive bowel sounds Skin: Other: No jaundice, no pallor Neuro: Other: Alert oriented x4, speech is clear, no facial asymmetry, extraocular movements intact no localizing neurologic deficits noted during the course of conversation Extrem: Other: No clubbing, cyanosis or edema Psych: Speech and movement: Normal speech and movement present Affect: Blunted affect present Attitude: cooperative Thought process: Normal thought process present H&P: Results Labs Labs: Laboratory Tests 12/11/24 22:18 12/11/24 22:18 12/11/24 12/11/24 12/11/24 21:27 22:12 22:18 WBC 10.6 H RBC 3.76 L Hgb 11.0 L D Hct 33.4 L MCV 88.8 MCH 29.3 MCHC 32.9 RDW 12.9 Plt Count 171 MPV 11.4 H Immature Gran % (Auto) 0.4 Neut % (Auto) 55.8 Lymph % (Auto) 33.4 [place] % (Auto) 8.3 Eos % (Auto) 1.5 Baso % (Auto) 0.6 Lymph # (Auto) 3.54 H [place] # (Auto) 0.9 H Eos # (Auto) 0.2 Baso # (Auto) 0.1 Abs Immat Gran (auto) 0.04 H Absolute Neuts (auto) 5.9 Absolute Nucleated RBC 0.000 Nucleated RBC % 0.0 PT 13.6 INR 1.0 APTT 25.6 D-Dimer 0.46 Sodium 138 Potassium 3.7 Chloride 106 Carbon Dioxide 29 Anion Gap 3 L BUN 13 Creatinine 0.92 Estim Creat Clear Calc 108 Estimated GFR > 60 Glucose 123 H POC Capillary Glucose 130 H Lactic Acid 1.1 Calcium 8.9 Total Bilirubin < 0.1 L AST 21 ALT 15 Alkaline Phosphatase 63 Troponin I < 0.012 Total Protein 5.9 L Albumin 3.4 L Lipase 104 Urine Color Urine Appearance Urine pH Ur Specific [place] Urine Protein Urine Glucose (UA) Urine Ketones Ur Blood (Man) Urine Nitrate Urine Bilirubin Urine Urobilinogen Leukocyte Esterase Rfl Urine RBC Urine WBC Ur Squamous Epith Cells Urine Bacteria Urine Casts Urine Opiates Screen Urine Methadone Screen Ur Barbiturates Screen Ur Phencyclidine Scrn Ur Amphetamine Screen U Benzodiazepines Scrn Urine Cocaine Screen U Cannabinoids Screen Influenza A (RT-PCR) Negative Influenza B (RT-PCR) Negative RSV (RT-PCR) Negative SARS-CoV-2 RNA (RT-PCR) Negative 12/11/24 12/12/24 22:50 00:32 WBC RBC Hgb Hct MCV MCH MCHC RDW Plt Count MPV Immature Gran % (Auto) Neut % (Auto) Lymph % (Auto) [place] % (Auto) Eos % (Auto) Baso % (Auto) Lymph # (Auto) [place] # (Auto) Eos # (Auto) Baso # (Auto) Abs Immat Gran (auto) Absolute Neuts (auto) Absolute Nucleated RBC Nucleated RBC % PT INR APTT D-Dimer Sodium Potassium Chloride Carbon Dioxide Anion Gap BUN Creatinine Estim Creat Clear Calc Estimated GFR Glucose POC Capillary Glucose Lactic Acid Calcium Total Bilirubin AST ALT Alkaline Phosphatase Troponin I < 0.012 Total Protein Albumin Lipase Urine Color Yellow Urine Appearance Turbid H Urine pH 7.0 Ur Specific [place] 1.018 Urine Protein 1+ H Urine Glucose (UA) Negative Urine Ketones Trace H Ur Blood (Man) Negative Urine Nitrate Negative Urine Bilirubin Negative Urine Urobilinogen 1.0 Leukocyte Esterase Rfl Negative Urine RBC 0-2 Urine WBC 0-5 Ur Squamous Epith Cells None seen Urine Bacteria None seen Urine Casts 3-5 Urine Opiates Screen Negative Urine Methadone Screen Negative Ur Barbiturates Screen Negative Ur Phencyclidine Scrn Negative Ur Amphetamine Screen Negative U Benzodiazepines Scrn Negative Urine Cocaine Screen Negative U Cannabinoids Screen Positive A Influenza A (RT-PCR) Influenza B (RT-PCR) RSV (RT-PCR) SARS-CoV-2 RNA (RT-PCR) Impressions Head CT 12/11/24 21:51 IMPRESSION: 1. No acute intracranial abnormality. Chest X-Ray 12/11/24 22:00 IMPRESSION: 1: NO ACUTE CARDIOPULMONARY DISEASE. Normal TSH 11/29/2024 Assessment and Plan Assessment and plan (1) Syncope and collapse: Code(s): R55 - Syncope and collapse Status: Acute (2) Bradycardia with 41-50 beats per minute: Code(s): R00.1 - Bradycardia, unspecified Status: Acute (3) Transient hypotension: Code(s): I95.9 - Hypotension, unspecified Status: Acute (4) Bipolar disorder: Qualifiers: Active/Remission status: currently active Current bipolar episode type: depressed Current episode severity: unspecified Qualified Code(s): F31.30 - Bipolar disorder, current episode depressed, mild or moderate severity, unspecified Code(s): F31.9 - Bipolar disorder, unspecified Status: Acute Plan Patient and syncope with collapse resulting in seizure-like activity. Given patient had observed recurrence of symptoms with bradycardia and hypotension and lack of postictal phase symptoms more consistent with syncope rather than seizure. Patient was recently started on antipsychotics and trazodone which could cause QT prolongation and or alpha blockade which could result in the above symptoms. Will hold the patient's psychiatric medications and monitor on telemetry. Symptoms seem suspicious for possible vasovagal event given correlation with symptoms of her to have a bowel movement and nausea. Will also check orthostatics to rule out component of orthostatic hypotension. MEDICAL DECISION MAKING NARRATIVE -Spoke with the ED provider in detail regarding patient's evaluation, workup and management -Patient seen and examined at bedside -Collaborated with patient's nurse at the bedside in detail and addressed all concerns -Labs, electrolytes, radiology, investigations and test results personally reviewed and interpreted unless otherwise specified -ED/Consult/Nursing/Ancilliary notes on the chart reviewed and appreciated -Spoke with patient at bedside and diagnosis and plan of care was discussed. All questions answered. Quality VTE Prophylaxis VTE prophylaxis: pharmacologic ordered (Lovenox 40 mg subQ daily.) Hospitalist [facility] Advance Care Plan I have confirmed that the patient's Advanced Care Plan is present, code status is documented, or surrogate decision maker is listed in patient medical record.: Yes Medication Reconciliation I have utilized all available resources to obtain, update and review the patients current medications (includes all prescriptions, OTC, herbals, cannabis, and nutritional supplements).: Yes
--- NOTE | 2024-12-12 02:00 | ADMGEN ---
This patient, Dennis Escalante, was admitted to Medical Room 261-01. Patient/family oriented to hospital policies and general routines including ID bracelet, bed and alarms, visiting hours, pain management, procedures, bathroom and other care routines, personal items, smoking policy, room service/diet, and visiting hours. Information on how to activate the Rapid Response Team has been discussed. Patient/Family are encouraged to report perceived risks to care and to ask questions if they do not understand what they are told or what they should do.
[2024-12-12 05:33] LABS: Hematocrit 33.7 % (42.0-52.0); Hemoglobin 11.0 g/dL (14.0-18.0); Mean Corpuscular HGB Conc 32.6 g/dl (32-36); Mean Corpuscular Hemoglobin 29.2 pg (26-34); Mean Corpuscular Volume 89.4 fl (80-100); Platelet Count Result 165 k/mm3 (150-375); Red Blood Count 3.77 M/mm3 (4.6-6.20); White Blood Count 10.3 K/mm3 (4.5-10.0)
[2024-12-12 06:00] LABS: Anion Gap 4 mmol/L (4-12); Blood Urea Nitrogen 10 mg/dL (9-20); Calcium 9.0 mg/dL (8.4-10.2); Carbon Dioxide 26 mmol/L (22-30); Chloride 108 mmol/L (98-107); Estimated CRCL calculation 114 ml/min; Estimated Glomerular Filt Rate > 60; Glucose 102 mg/dL (65-110); Potassium 4.0 mmol/L (3.4-5.0); Sodium 138 mmol/L (137-145)
[2024-12-12] MEDS: ENOXAPARIN 40 MG/0.4 ML SYRINGE SUB-Q (09:30)
--- NOTE | 2024-12-12 14:03 | P.PNIM_ITS ---
Progress Note: A&P Assessment and Plan (1) Syncope and collapse: Code(s): R55 - Syncope and collapse Status: Acute (2) Bradycardia with 41-50 beats per minute: Code(s): R00.1 - Bradycardia, unspecified Status: Acute (3) Transient hypotension: Code(s): I95.9 - Hypotension, unspecified Status: Acute (4) Bipolar disorder: Qualifiers: Active/Remission status: currently active Current bipolar episode type: depressed Current episode severity: unspecified Qualified Code(s): F31.30 - Bipolar disorder, current episode depressed, mild or moderate severity, unspecified Code(s): F31.9 - Bipolar disorder, unspecified Status: Acute Plan Patient and syncope with collapse resulting in seizure-like activity. Given patient had observed recurrence of symptoms with bradycardia and hypotension and lack of postictal phase symptoms more consistent with syncope rather than seizure. Patient was recently started on antipsychotics and trazodone which could cause QT prolongation and or alpha blockade which could result in the above symptoms. Will hold the patient's psychiatric medications and monitor on telemetry. Symptoms seem suspicious for possible vasovagal event given correlation with symptoms of her to have a bowel movement and nausea. Will also check orthostatics to rule out component of orthostatic hypotension. Will consult psych for help with medical mngmnt as pt is under a lot stress as undergoing divorce will consult neurology to r/u seizures -check tsh echo ordered to r/o cardiac sources for syncope monitor closely Time Spent With Patient Time with patient: Greater than 35 minutes Subjective Date/time seen: 12/12/24 14:03 Interval history: Seizure-like activity Narrative: 49-year-old male with a past medical history of psychiatric illness with psychosis to was recently started on Zyprexa and trazodone who presented to the ER via EMS due to loss of consciousness with seizure-like activity. The patient reports that he was discharged [facility] on 12/09/2024 after a 7 day stay. The went to get his medications filled but they were not ready. Did not strip picker his medications until the . He took is Zyprexa in the afternoon when they picked up his meds and then took is trazodone at bedtime. He stated that he got up to go to the bathroom to have a bowel movement and about nursing home to the bathroom started to feel lightheaded and sweaty. He passed out and does not remember falling he does report some discomfort in his shoulders. His reported that the patient fell face 1st in landed on the ground. He had about 30 seconds of shaking of his extremities. He woke up after about 30 seconds and was back to his usual self without evidence of postictal state. He was diaphoretic and sweating. She called EMS when patient was on route to hospital the patient reported that he became nauseous and diaphoretic. He it was about that time the patient became bradycardic and hypotensive with systolics in the 60s and heart rates in the low 40s. He was given a dose of atropine with resolution of his hypotension and bradycardia. The patient stated that he was able to have a bowel movement prior to getting in the ambulance. He has not had any further nausea or symptoms of lightheadedness. Never had a history of a seizure. He denied any preceding chest pain or palpitations. His is stated to the ER providers that the patient tends to minimize his symptoms. The was concerned that the patient may have been taking her Adderall with the patient's urine drug screen was negative for amphetamines. He reports that he feels extremely tired which he blames on the medications. He does not know what is psychiatric diagnosis was. He does not know if he has a follow-up appointment. He reports feeling anxious. assuming care. Pt is alert and oriented. states never have seizures before or any syncope. 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 Undergoing a lot of family issues as is him. Review of Systems Review of Systems: 12 systems were reviewed with pertinent positives and negatives per HPI. Except as documented in the HPI, all other systems were reviewed and are negative. Exam Narrative: Weight 98.9 kg BMI 30.4 Const: Other: No acute distress, overweight, appears stated age, smells strongly of urine HENMT: Other: Head is normocephalic atraumatic, Mucous membranes are moist, no oral pharyngeal erythema, poor dentition Eyes: Other: Pupils are equal and reactive, no scleral icterus Neck: Other: No JVD, irregular right border thyroid gland Resp: Other: Clear to auscultation bilaterally, no increased work of breathing Cardio: Other: Regular rate, regular rhythm, 2+ bilateral radial pedal pulses GI: Other: nontender, nondistended, positive bowel sounds Skin: Other: No jaundice, no pallor Neuro: Other: Alert oriented x4, speech is clear, no facial asymmetry, extraocular movements intact no localizing neurologic deficits noted during the course of conversation Extrem: Other: No clubbing, cyanosis or edema Psych: Speech and movement: Normal speech and movement present Affect: Blunted affect present Attitude: cooperative Thought process: Normal thought process present Objective Data Vital Signs Vital Signs: Vital Signs - 24 hr 12/11/24 21:24 12/12/24 01:02 12/12/24 01:14 Temperature 97.6 F 97.5 F L 97.6 F Pulse Rate 97 61 56 L Respiratory Rate 18 18 16 Blood Pressure 109/94 H 132/71 121/58 L Pulse Oximetry 100 99 100 Oxygen Delivery Room Air 12/12/24 03:28 12/12/24 05:00 12/12/24 06:00 Temperature 98 F Pulse Rate 56 L 57 L 50 L Respiratory Rate 16 16 Blood Pressure 104/57 L Pulse Oximetry 100 100 Oxygen Delivery Room Air 12/12/24 09:30 Temperature Pulse Rate Respiratory Rate Blood Pressure Pulse Oximetry Oxygen Delivery Room Air Intake/Output Intake/Output: Intake & Output 12/09/24 12/10/24 12/11/24 12/12/24 23:59 23:59 23:59 23:59 Intake Total 1000 730 Balance 1000 730 Meds/Results Medications: Active Medications Generic Name Dose Route Start Last Admin Trade Name Freq PRN Reason Stop Dose Admin Acetaminophen 650 mg 12/12/24 00:09 Acetaminophen 325 Mg Tablet PO Q4H PRN Mild Pain (1-3) or Fever Enoxaparin Sodium 40 mg 12/12/24 09:00 12/12/24 09:30 Enoxaparin 40 Mg/0.4 Ml Syringe SUB-Q 40 mg DAILY AHSAN Administration Radiology Results: ITS Impressions Head CT 12/11/24 21:51 IMPRESSION: 1. No acute intracranial abnormality. Chest X-Ray 12/11/24 22:00 IMPRESSION: 1: NO ACUTE CARDIOPULMONARY DISEASE. Labs Labs: Laboratory Results - last 24 hr 12/11/24 12/11/24 12/11/24 21:27 22:12 22:18 WBC 10.6 H RBC 3.76 L Hgb 11.0 L D Hct 33.4 L MCV 88.8 MCH 29.3 MCHC 32.9 RDW 12.9 Plt Count 171 MPV 11.4 H Immature Gran % (Auto) 0.4 Neut % (Auto) 55.8 Lymph % (Auto) 33.4 [place] % (Auto) 8.3 Eos % (Auto) 1.5 Baso % (Auto) 0.6 Lymph # (Auto) 3.54 H [place] # (Auto) 0.9 H Eos # (Auto) 0.2 Baso # (Auto) 0.1 Abs Immat Gran (auto) 0.04 H Absolute Neuts (auto) 5.9 Absolute Nucleated RBC 0.000 Nucleated RBC % 0.0 PT 13.6 INR 1.0 APTT 25.6 D-Dimer 0.46 Sodium 138 Potassium 3.7 Chloride 106 Carbon Dioxide 29 Anion Gap 3 L BUN 13 Creatinine 0.92 Estim Creat Clear Calc 108 Estimated GFR > 60 Glucose 123 H POC Capillary Glucose 130 H Lactic Acid 1.1 Calcium 8.9 Total Bilirubin < 0.1 L AST 21 ALT 15 Alkaline Phosphatase 63 Troponin I < 0.012 Total Protein 5.9 L Albumin 3.4 L Lipase 104 Urine Color Urine Appearance Urine pH Ur Specific [place] Urine Protein Urine Glucose (UA) Urine Ketones Ur Blood (Man) Urine Nitrate Urine Bilirubin Urine Urobilinogen Leukocyte Esterase Rfl Urine RBC Urine WBC Ur Squamous Epith Cells Urine Bacteria Urine Casts Urine Opiates Screen Urine Methadone Screen Ur Barbiturates Screen Ur Phencyclidine Scrn Ur Amphetamine Screen U Benzodiazepines Scrn Urine Cocaine Screen U Cannabinoids Screen Influenza A (RT-PCR) Negative Influenza B (RT-PCR) Negative RSV (RT-PCR) Negative SARS-CoV-2 RNA (RT-PCR) Negative 12/11/24 12/12/24 12/12/24 22:50 00:32 05:25 WBC 10.3 H RBC 3.77 L Hgb 11.0 L Hct 33.7 L MCV 89.4 MCH 29.2 MCHC 32.6 RDW 13.2 Plt Count 165 MPV 11.4 H Immature Gran % (Auto) Neut % (Auto) Lymph % (Auto) [place] % (Auto) Eos % (Auto) Baso % (Auto) Lymph # (Auto) [place] # (Auto) Eos # (Auto) Baso # (Auto) Abs Immat Gran (auto) Absolute Neuts (auto) Absolute Nucleated RBC Nucleated RBC % PT INR APTT D-Dimer Sodium 138 Potassium 4.0 Chloride 108 H Carbon Dioxide 26 Anion Gap 4 BUN 10 Creatinine 0.83 Estim Creat Clear Calc 114 Estimated GFR > 60 Glucose 102 POC Capillary Glucose Lactic Acid Calcium 9.0 Total Bilirubin AST ALT Alkaline Phosphatase Troponin I < 0.012 Total Protein Albumin Lipase Urine Color Yellow Urine Appearance Turbid H Urine pH 7.0 Ur Specific [place] 1.018 Urine Protein 1+ H Urine Glucose (UA) Negative Urine Ketones Trace H Ur Blood (Man) Negative Urine Nitrate Negative Urine Bilirubin Negative Urine Urobilinogen 1.0 Leukocyte Esterase Rfl Negative Urine RBC 0-2 Urine WBC 0-5 Ur Squamous Epith Cells None seen Urine Bacteria None seen Urine Casts 3-5 Urine Opiates Screen Negative Urine Methadone Screen Negative Ur Barbiturates Screen Negative Ur Phencyclidine Scrn Negative Ur Amphetamine Screen Negative U Benzodiazepines Scrn Negative Urine Cocaine Screen Negative U Cannabinoids Screen Positive A Influenza A (RT-PCR) Influenza B (RT-PCR) RSV (RT-PCR) SARS-CoV-2 RNA (RT-PCR) Quality VTE Prophylaxis VTE prophylaxis: pharmacologic ordered (Lovenox 40 mg subQ daily.)
--- NOTE | 2024-12-12 16:32 | P.PSYCH_ITS ---
Assessment and Plan Assessment and plan (1) Bipolar disorder: Qualifiers: Active/Remission status: currently active Current bipolar episode type: depressed Current episode severity: unspecified Qualified Code(s): F31.30 - Bipolar disorder, current episode depressed, mild or moderate severity, unspecified Code(s): F31.9 - Bipolar disorder, unspecified Status: Acute Plan THC causes vasodilation, which can lead to hypotension and reflex tachycardia. Edibles have delayed onset, and users often consume too much, leading to unexpected intensity or duration of effects. In combination with other alpha-blocking or sedating meds (like olanzapine, trazodone), THC increases risk of orthostatic hypotension and collapse. In this patient with bradycardia + hypotension + collapse, THC likely amplified medication effects. Start Lurasidone 40 mg PO daily with food (>=350 kcal): discontinue trazodone and olanzapine. Safer cardiovascular profile than olanzapine Effective for both mood and psychotic symptoms Appropriate monotherapy option in current context Avoid adding other sedating meds (e.g., trazodone, benzos) unless clinically necessary HPI Data of Consult Date/Time: 12/12/24 16:32 Requesting Physician: Sara Durand DO Primary Care Provider: UNKNOWN,DOCTOR Consult Narrative Narrative: Dennis Escalante is a 49-year-old male with a longstanding history of Bipolar I Disorder, who reports first experiencing manic symptoms in his early 20s (notably inflated self-esteem/grandiosity and decreased need for sleep), but was never previously treated with psychiatric medication until his recent inpatient psychiatric hospitalization at [facility] (duration: approximately one week; discharged last Monday). Post-discharge, the patient experienced a two-day lapse in Olanzapine 20 mg due to pharmacy delay in medication fulfillment. Since psychiatric hospitalization, he reports improved sleep (even without Trazodone), and increased appetite, which he attributes to the Olanzapine. He denies any current psychiatric symptoms of concern including suicidal ideation, homicidal ideation, hallucinations, delusions, or paranoia. He reports a history of right shoulder pain from a prior fall (non-psychiatric complaint). Of note, prior to his most recent hospitalization at [facility], he had taken Olanzapine 20 mg along with a marijuana gummy. The patient expressed understanding of the potential correlation between Olanzapine, Trazodone, and marijuana use and the increased risk of bradycardia and syncope. Review of Systems 2 Psychiatric: Psychiatric: Reports no additional psychiatric complaints PMFSH Past Medical History Medical History Bipolar disorder Surgical History Surgical History No history of previous surgery Family History Family History Mother Hypertension Father Lung cancer Social History Social History Social History: Patient lives with his of 13 years. 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 He smokes 7 cigarettes a day on and off for about 25 years.. He uses marijuana gummies daily. He denies any alcohol use. Code status: Full code Surrogate decision maker: Smoking packs per day: 0.25 Smoking cigarettes per day: 5.0 Years smoked: 25 Smoking pack-years: 6.25 Smoking status: Current every day smoker Tobacco type: cigarettes Alcohol intake: never Substance use: current Substance use type: marijuana Other substance usage details: daily Lack of Transportation: No Lack of Food: Never True Current Housing: I Have Housing Concerned About Future Housing: No Difficulty Paying Gas/Electric Bills: No Difficulty Paying for Meds: No Currently Unemployed: No Education: High School Diploma/GED Difficulty w/ Childcare or Family Care: No Spiritual care concerns: No Meds Home Medications and Allergies Home Medications ?Medication ?Instructions ?Recorded ?Confirmed ?Type olanzapine 20 mg tablet 20 mg PO HS 12/11/24 5 History trazodone 50 mg tablet 50 mg PO HS PRN insomnia 12/11/24 History Allergies Allergy/AdvReac Type Severity Reaction Status Date / Time No Known Allergies Allergy Verified 12/11/24 21:33 Vital Signs Vital Signs - 24 hr 12/11/24 21:24 12/12/24 01:02 12/12/24 01:14 Temperature 97.6 F 97.5 F L 97.6 F Pulse Rate 97 61 56 L Respiratory Rate 18 18 16 Blood Pressure 109/94 H 132/71 121/58 L Pulse Oximetry 100 99 100 Oxygen Delivery Room Air 12/12/24 03:28 12/12/24 05:00 12/12/24 06:00 Temperature 98 F Pulse Rate 56 L 57 L 50 L Respiratory Rate 16 16 Blood Pressure 104/57 L Pulse Oximetry 100 100 Oxygen Delivery Room Air 12/12/24 08:00 12/12/24 09:30 12/12/24 12:00 Temperature Pulse Rate 90 57 L Respiratory Rate Blood Pressure Pulse Oximetry Oxygen Delivery Room Air 12/12/24 14:00 12/12/24 15:45 12/12/24 15:49 Temperature 97.8 F Pulse Rate 58 L 54 L 51 L Respiratory Rate 18 Blood Pressure 128/78 139/88 136/83 Pulse Oximetry 99 Oxygen Delivery 12/12/24 15:53 12/12/24 16:00 Temperature Pulse Rate 52 L 54 L Respiratory Rate Blood Pressure 131/81 Pulse Oximetry Oxygen Delivery Exam 2 Psych: Appearance: grossly normal Mental Status: mental status grossly normal Speech and movement: Normal speech and movement present Affect: n ormal affect Attitude: cooperative Thought process: Normal thought process present Thought content: Yes Normal thought content present Insight: Fair insight present (Psych) Judgement: Fair judgement present (Psych) Results Labs 12/12/24 05:25 12/12/24 05:25 Labs: Short CBC 12/11/24 12/12/24 Range/Units 22:18 05:25 WBC 10.6 H 10.3 H (4.5-10.0) K/mm3 Hgb 11.0 L D 11.0 L (14.0-18.0) g/dL Hct 33.4 L 33.7 L (42.0-52.0) % Plt Count 171 165 (150-375) k/mm3 BMP 12/11/24 12/12/24 22:18 05:25 Sodium 138 138 Potassium 3.7 4.0 Chloride 106 108 H Carbon Dioxide 29 26 BUN 13 10 Creatinine 0.92 0.83 Glucose 123 H 102 Calcium 8.9 9.0 Cardiac Enzymes 12/11/24 12/12/24 Range/Units 22:18 00:32 Troponin I < 0.012 < 0.012 (0.000-0.034) ng/mL Liver Function 12/11/24 Range/Units 22:18 Total Bilirubin < 0.1 L (0.2-1.3) mg/dL AST 21 (17-59) U/L ALT 15 (6-50) U/L Alkaline Phosphatase 63 (38-126) U/L Albumin 3.4 L (3.5-5.1) g/dL Urine 12/11/24 Range/Units 22:50 Urine Color Yellow (Yellow) Urine Appearance Turbid H (Clear) Urine pH 7.0 (5.0-9.0) Ur Specific [place] 1.018 (1.001-1.035) Urine Protein 1+ H (Negative) mg/dL Urine Glucose (UA) Negative (Negative) mg/dL
--- NOTE | 2024-12-12 18:35 | WPDNEURCNPN ---
Assessment and Plan Assessment and plan (1) Syncope and collapse: Code(s): R55 - Syncope and collapse Status: Acute (2) Bipolar disorder: Qualifiers: Active/Remission status: currently active Current bipolar episode type: depressed Current episode severity: unspecified Qualified Code(s): F31.30 - Bipolar disorder, current episode depressed, mild or moderate severity, unspecified Code(s): F31.9 - Bipolar disorder, unspecified Status: Acute Plan Description is suggestive of vasovagal syncope since the patient pericardial and hypertension a cold and clammy. Neurological examination findings are within normal limits. On admission his WBC count was 10.6. A CT scan of brain was performed which did not show any significant abnormality. I reviewed the films and agree with the findings. Urine toxicology was positive for cannabis. Previously on 11/29/2024 urine positive for amphetamine however on this occasion it was negative. The patient was also seen by psychiatrist who felt that the AC can cause vasodilatation which can lead to hypotension and reflex tachycardia. Medications can also raise the risk of this. Is the psychiatrist has changed medications a different set of medications. I agree with the observation made by Dr. Durand and psychiatrist. Were if he has any further episodes of the any concern from neurologic point of view I shall be glad to re-evaluate him. Consult date: 12/12/24 HPI: Dennis Escalante is a 49 year old male with history of bipolar disorder recently hospitalized under psychiatry came home on olanzapine 20 mg and trazodone 50 mg. Yesterday evening as he was getting up to go to bathroom is suddenly passed out. He is out for 30 seconds and thereafter he was acting appropriately. He was diaphoretic and sweating at the time. EMS was called and he was found to have bradycardia and hypotension also in the 40s and blood pressure the 60s systolic and he was very diaphoretic. They administered 1 mg atropine with improvement in the vital signs. After that he has not had any further spells. Did not have any tongue biting or any abnormal behavior after the spell. No prior history of seizure disorder for any cardiac problems. EKG shows normal QT interval and no ST changes. He was placed on the mortician supplies sales representative and being observed. He arrived last night. Review of Systems Review of Systems: All systems reviewed & are unremarkable except as noted in HPI and below PMFSH Past Medical History Medical History Bipolar disorder Surgical History Surgical History No history of previous surgery Family History Family History Mother Hypertension Father Lung cancer Social History Social History Social History: Patient lives with his of 13 years. 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 He smokes 7 cigarettes a day on and off for about 25 years.. He uses marijuana gummies daily. He denies any alcohol use. Code status: Full code Surrogate decision maker: Smoking packs per day: 0.25 Smoking cigarettes per day: 5.0 Years smoked: 25 Smoking pack-years: 6.25 Smoking status: Current every day smoker Tobacco type: cigarettes Alcohol intake: never Substance use: current Substance use type: marijuana Other substance usage details: daily Lack of Transportation: No Lack of Food: Never True Current Housing: I Have Housing Concerned About Future Housing: No Difficulty Paying Gas/Electric Bills: No Difficulty Paying for Meds: No Currently Unemployed: No Education: High School Diploma/GED Difficulty w/ Childcare or Family Care: No Spiritual care concerns: No Meds Home Medications and Allergies Home Medications ?Medication ?Instructions ?Recorded ?Confirmed ?Type olanzapine 20 mg tablet 20 mg PO HS 12/11/24 12/11/24 History trazodone 50 mg tablet 50 mg PO HS PRN insomnia 12/11/24 12/11/24 History Allergies Allergy/AdvReac Type Severity Reaction Status Date / Time No Known Allergies Allergy Verified 12/11/24 21:33 Vital Signs Vital Signs - 24 hr 12/11/24 21:24 12/12/24 01:02 12/12/24 01:14 Temperature 97.6 F 97.5 F L 97.6 F Pulse Rate 97 61 56 L Respiratory Rate 18 18 16 Blood Pressure 109/94 H 132/71 121/58 L Pulse Oximetry 100 99 100 Oxygen Delivery Room Air 12/12/24 03:28 12/12/24 05:00 12/12/24 06:00 Temperature 98 F Pulse Rate 56 L 57 L 50 L Respiratory Rate 16 16 Blood Pressure 104/57 L Pulse Oximetry 100 100 Oxygen Delivery Room Air 12/12/24 08:00 12/12/24 09:30 12/12/24 12:00 Temperature Pulse Rate 90 57 L Respiratory Rate Blood Pressure Pulse Oximetry Oxygen Delivery Room Air 12/12/24 14:00 12/12/24 15:45 12/12/24 15:49 Temperature 97.8 F Pulse Rate 58 L 54 L 51 L Respiratory Rate 18 Blood Pressure 128/78 139/88 136/83 Pulse Oximetry 99 Oxygen Delivery 12/12/24 15:53 12/12/24 16:00 Temperature Pulse Rate 52 L 54 L Respiratory Rate Blood Pressure 131/81 Pulse Oximetry Oxygen Delivery Exam Const: General: cooperative, healthy appearing and comfortable HENMT: Head: atraumatic Eyes: Alignment and Position: alignment normal and position normal EOM: EOMs intact bilaterally Neck: Neck: normal visual inspection and supple Resp: Effort & Inspection: normal respiratory effort Skin: General skin exam: normal color Neuro: Cranial nerves: Yes CN's II-XII intact bilaterally, Yes facial symmetry and Yes Midline tongue present Cognition (Neuro): normal cognition Speech: normal speech Sensory Exam: normal sensation Coordination: [id number] test normal and Normal rapid alternating movements of the distal upper extremity present (Neuro) Extrem: General: normal to inspection Psych: Appearance: well kempt Mental Status: mental status grossly normal Speech and movement: Normal speech and movement present Affect: normal affect Thought process: Normal thought process present Thought content: Yes Normal thought content present Insight: Good insight present (Psych) Judgement: Good judgement present (Psych) Results Labs 12/12/24 05:25 12/12/24 05:25 Labs: Short CBC 12/11/24 12/12/24 Range/Units 22:18 05:25 WBC 10.6 H 10.3 H (4.5-10.0) K/mm3 Hgb 11.0 L D 11.0 L (14.0-18.0) g/dL Hct 33.4 L 33.7 L (42.0-52.0) % Plt Count 171 165 (150-375) k/mm3 BMP 12/11/24 12/12/24 22:18 05:25 Sodium 138 138 Potassium 3.7 4.0 Chloride 106 108 H Carbon Dioxide 29 26 BUN 13 10 Creatinine 0.92 0.83 Glucose 123 H 102 Calcium 8.9 9.0 Cardiac Enzymes 12/11/24 12/12/24 Range/Units 22:18 00:32 Troponin I < 0.012 < 0.012 (0.000-0.034) ng/mL Liver Function 12/11/24 Range/Units 22:18 Total Bilirubin < 0.1 L (0.2-1.3) mg/dL AST 21 (17-59) U/L ALT 15 (6-50) U/L Alkaline Phosphatase 63 (38-126) U/L Albumin 3.4 L (3.5-5.1) g/dL Urine 12/11/24 Range/Units 22:50 Urine Color Yellow (Yellow) Urine Appearance Turbid H (Clear) Urine pH 7.0 (5.0-9.0) Ur Specific [place] 1.018 (1.001-1.035) Urine Protein 1+ H (Negative) mg/dL Urine Glucose (UA) Negative (Negative) mg/dL
[2024-12-13] VITALS (8 sets, daily range): BP systolic 121–150; BP diastolic 73–86; PULSE 49–76; RESP 20; TEMP 36.5; O2SAT 98–99
[2024-12-13 04:51] LABS: Thyroid Stimulating Hormone Reflex 1.530 uIU/mL (0.465-4.68)
[2024-12-13] MEDS: LURASIDONE HCL 40 MG TABLET PO (08:59)
[2024-12-13] MEDS: ENOXAPARIN 40 MG/0.4 ML SYRINGE SUB-Q (09:00)
--- NOTE | 2024-12-13 14:35 | PM.DS ---
DS: Admitting Diagnosis Discharge Date 12/13 Admitting Diagnosis syncope DS: Discharge Diagnosis Discharge Diagnosis (1) Syncope and collapse: Code(s): R55 - Syncope and collapse Status: Acute (2) Bradycardia with 41-50 beats per minute: Code(s): R00.1 - Bradycardia, unspecified Status: Acute (3) Transient hypotension: Code(s): I95.9 - Hypotension, unspecified Status: Acute (4) Bipolar disorder: Qualifiers: Active/Remission status: currently active Current bipolar episode type: depressed Current episode severity: unspecified Qualified Code(s): F31.30 - Bipolar disorder, current episode depressed, mild or moderate severity, unspecified Code(s): F31.9 - Bipolar disorder, unspecified Status: Acute DS: Summary Hospital Course Hospital Course: Patient and syncope with collapse resulting in seizure-like activity. Given patient had observed recurrence of symptoms with bradycardia and hypotension and lack of postictal phase symptoms more consistent with syncope rather than seizure. Patient was recently started on antipsychotics and trazodone which could cause QT prolongation and or alpha blockade which could result in the above symptoms. Will hold the patient's psychiatric medications and monitor on telemetry. Symptoms seem suspicious for possible vasovagal event given correlation with symptoms of her to have a bowel movement and nausea. Will also check orthostatics to rule out component of orthostatic hypotension. Will consult psych for help with medical mngmnt as pt is under a lot stress as undergoing divorce will consult neurology to r/u seizures- neurology eval completed: Description is suggestive of vasovagal syncope since the patient pericardial and hypertension a cold and clammy. Neurological examination findings are within normal limits. On admission his WBC count was 10.6. A CT scan of brain was performed which did not show any significant abnormality. I reviewed the films and agree with the findings. Urine toxicology was positive for cannabis. Previously on 11/29/2024 urine positive for amphetamine however on this occasion it was negative. The patient was also seen by psychiatrist who felt that the AC can cause vasodilatation which can lead to hypotension and reflex tachycardia. Medications can also raise the risk of this. Is the psychiatrist has changed medications a different set of medications. I agree with the observation made by Dr. Durand and psychiatrist. Were if he has any further episodes of the any concern from neurologic point of view I shall be glad to re-evaluate him. Psych eval: THC causes vasodilation, which can lead to hypotension and reflex tachycardia. Edibles have delayed onset, and users often consume too much, leading to unexpected intensity or duration of effects. In combination with other alpha-blocking or sedating meds (like olanzapine, trazodone), THC increases risk of orthostatic hypotension and collapse. In this patient with bradycardia + hypotension + collapse, THC likely amplified medication effects. Start Lurasidone 40 mg PO daily with food (>=350 kcal): discontinue trazodone and olanzapine. Safer cardiovascular profile than olanzapine Effective for both mood and psychotic symptoms Appropriate monotherapy option in current context Avoid adding other sedating meds (e.g., trazodone, benzos) unless clinically necessary Summary 1. Complete two-dimensional, color flow and Doppler transthoracic echocardiogram is performed. 2. Left ventricular systolic function is normal, estimated at 60-65. 3. The left ventricular diastolic function is normal. 4. There is trace tricuspid valve regurgitation. 5. Moderate pulmonary hypertension, estimated pulmonary arterial systolic pressure is 55 mmHg. 6. The aortic root size at the sinus of Valsalva is mildly dilated. Time Spent with Patient Time attestation: Total time spent providing and/or coordinating discharge services: Exam Narrative: Weight 98.9 kg BMI 30.4 Const: General: comfortable Other: No acute distress, overweight, appears stated age, smells strongly of urine HENMT: Other: Head is normocephalic atraumatic, Mucous membranes are moist, no oral pharyngeal erythema, poor dentition Eyes: Other: Pupils are equal and reactive, no scleral icterus Neck: Other: No JVD, irregular right border thyroid gland Resp: Effort & Inspection: normal respiratory effort Auscultation: clear to auscultation bilaterally Other: Clear to auscultation bilaterally, no increased work of breathing Cardio: Rate: regular rate Rhythm: regular rhythm Other: Regular rate, regular rhythm, 2+ bilateral radial pedal pulses GI: GI Palp: Yes Soft to palpation Other: nontender, nondistended, positive bowel sounds Skin: Other: No jaundice, no pallor Neuro: Other: Alert oriented x4, speech is clear, no facial asymmetry, extraocular movements intact no localizing neurologic deficits noted during the course of conversation Extrem: Other: No clubbing, cyanosis or edema Psych: Speech and movement: Normal speech and movement present Affect: Blunted affect present Attitude: cooperative Thought process: Normal thought process present DS: Data Data Completed and Pending Labs on day of discharge: Labs from last 24 hours 12/13/24 03:51 TSH (Reflex) 1.530 Discharge Plan Discharge Attending physician on discharge: Javier Diaz Consulting providers: Wilner Haji; Ramsey Nicole Discharging Clinician: Lea Terry Patient Disposition: Home Activity: may shower Diet: regular Discharge Instructions: THC causes vasodilation, which can lead to hypotension-low blood pressure and reflex tachycardia- fast heart rate. Edibles have delayed onset, and users often consume too much, leading to unexpected intensity or duration of effects. In combination with other alpha-blocking or sedating meds (like olanzapine, trazodone), THC increases risk of orthostatic hypotension and collapse. In this patient with bradycardia + hypotension + collapse, THC likely amplified medication effects. Start Lurasidone 40 mg PO daily with food (>=350 kcal): discontinue trazodone and olanzapine. Safer cardiovascular profile than olanzapine Effective for both mood and psychotic symptoms Appropriate monotherapy option in current context Avoid adding other sedating meds (e.g., trazodone, benzos) unless clinically necessary It is improtant for yout o stop using marijuana, TCH, and/or any otger drugs or medications that were not prescribed to you. Neurological examination findings are within normal limits. A CT scan of brain was performed which did not show any significant abnormality. ECHO- heart ultrasound was normal. Patient Instructions: Antibiotic Form Patient Language: Kiswahili Stand Alone Forms: General Discharge Information Follow-up/Referrals: Riley Stubbs APRN [Advanced Practice Nurse, Psychiatry] - 2 Weeks Fabiola,DO Susan [Primary Care Provider, Unknown] - 2 Weeks Discharge Medications: New lurasidone 40 mg Tablet 40 mg PO DAILY@0800 Qty: 90 0RF Discontinued olanzapine 20 mg tablet 20 mg PO HS trazodone 50 mg tablet 50 mg PO HS PRN (Reason: insomnia) Date of admission: 12/12/24 00:35 Primary Care Provider: Fabiola,Susan Admitting Provider: Sara Durand Attending physician on admission: Sara Durand Condition: Stable Quality VTE Prophylaxis VTE prophylaxis: pharmacologic ordered (Lovenox 40 mg subQ daily.) Hospitalist MIPS Heart Failure (Exclusion) Patient has history of Heart Transplant or Left Ventricular Assistive Device?: No IF YES, STOP HERE Heart Failure (Qualifier) Patient has current or prior documentation of LVEF less than or equal to 40%, or mod/servere depressed LVSF?: No IF NO, STOP HERE
== END 2024-12-13 14:54 | disposition home or self-care (01) ==
LOC: ANHED 22:39 → ANH2MED 12-12 00:38
PROVIDERS: Nurse Practitioner; Admitting Provider Internal Medicine; Emergency Provider Student in an Organized Health Care Education/Training Program; PCP Family Medicine; Visit Provider Internal Medicine
DX: R55 Syncope and collapse (principal); R00.1 Bradycardia, unspecified; I95.9 Hypotension, unspecified; F31.30 Bipolar disorder, current episode depressed, mild or moderate severity, unspecified; F12.90 Cannabis use, unspecified, uncomplicated; F17.210 Nicotine dependence, cigarettes, uncomplicated; Z20.822 Contact with and (suspected) exposure to COVID-19
CPT/HCPCS: 36415; 70450; 71045; 80048; 80053; 80307; 81001; 82948; 83605; 83690; 84443; 84484; 85025; 85027; 85380; 85610; 85730; 87637; 93005; 93306; 96360; 96372; 99285; A9270; G0378; J1650; J7030